=== PATIENT | female | born 1950 ===

== ENCOUNTER → 2018-02-09 | Outpatient (CLI) | payer OTHER ==
[~2018-02-09] MED LIST: FEXO-67 PO; FLU IM
[2018-02-09 13:11] LABS: LDL CHOLESTEROL 80 mg/dl
== END ==
LOC: LAB 11:34
PROVIDERS: ATTEND Family Medicine
DX: E78.5 Hyperlipidemia, unspecified (principal); I10 Essential (primary) hypertension; E11.65 Type 2 diabetes mellitus with hyperglycemia
CPT/HCPCS: 36415; 82040; 82043; 82247; 82310; 82374; 82435; 82465; 82565; 82947; 83036; 83718; 84075; 84132; 84155; 84295; 84450; 84460; 84478; 84520

== ENCOUNTER → 2018-04-24 | Outpatient (CLI) | payer MEDICARE, BC ==
--- NOTE | 2018-04-27 17:25 | RADIOLOGY IMAGING REPORT ---
[place] [facility] [place]: BESS EDOUARD : [id number] MR: [id number] V: [id number] EXAM DATE: ORDERING PHYSICIAN: ARELY PINA TECHNOLOGIST: Seda Gresham PROCEDURE:BILATERAL DIGITAL SCREENING MAMMOGRAM WITH CAD ASSISTED INTERPRETATION & 3D TOMOSYNTHESIS COMPARISON:Prior mammograms 02/12/17, 02/12/16, 01/30/15, 12/21/13, 10/13/12, 07/30/11. INDICATIONS:SCREENING FINDINGS: Small to moderate amount of fibroglandular tissue is seen throughout the breasts. The parenchymal pattern has remained stable allowing for difference in mammographic technique & patient positioning. There is no evidence of malignant appearing mass, malignant appearing calcifications or other secondary sign of malignancy in either breast. DIAGNOSTIC CATEGORY 1--NEGATIVE. RECOMMENDATIONS: ROUTINE MAMMOGRAM AND CLINICAL EVALUATION. IMPRESSION: BIRADS 1: Negative. No significant abnormality is seen. Dictated by: Stella Matos M.D. on 04/27/2018 at 15:27 Transcribed by: OLIVIA on 04/27/2018 at 15:41 Approved by: Stella Matos M.D. on 04/27/2018 at 17:24 [facility]
== END ==
LOC: MAMO 02:48
PROVIDERS: ATTEND Family Medicine
DX: Z12.31 Encounter for screening mammogram for malignant neoplasm of breast (principal)
CPT/HCPCS: 77063; 77067

== ENCOUNTER 2018-05-27 00:07 | Day surgery (SDC) | payer MEDICARE, BC, OTHER ==
[~2018-05-27] VITALS: Ht 162.6 cm; Wt 59.4 kg
[~2018-05-27 00:07] MED LIST changes: +ATOR20TA22 PO; +LISI20TA29 PO; +METF-411 PO
[2018-05-27] MEDS ORDERED: LIDOCAINE/SOD BICARB 8.4% SYR ID ONE (06:30)
[2018-05-27] MEDS ORDERED: NORMOSOL R SOLN(*) 1000 ML BAG 1,000 ML IV PRN (06:30)
[2018-05-27 07:12] VITALS: BP 147/94
[2018-05-27] MEDS ORDERED: PROPOFOL EMUL(*) 10MG/ML 20 ML 40 ML ONE (07:58)
[2018-05-27 08:42] VITALS: BP 104/42
--- NOTE | 2018-05-27 08:43 | Short(Outpt) Discharge Summary ---
Discharge Summary Reason for Hosp/Final Diag: (1) Colon cancer screening Status: Chronic Hospital Course & Plan: Colonoscopy completed without problems: normal. Departure Discharge to: Home, Self Care Discharge Instructions Home Meds Reported Medications Metformin Hcl (METFORMIN HCL) 500 Mg Tablet, 0.5 TAB PO QDAY, TAB 7 Atorvastatin Calcium (LIPITOR) 20 Mg Tablet, 1 TAB PO QDAY, TAB 04/28/18 Lisinopril (LISINOPRIL) 20 Mg Tablet, 20 MG PO QDAY, TAB 04/28/18 Diet: Regular Activity: As Tolerated Special Instructions: Your colonoscopy was completed without any problems and your prep was excellent (Good Job!!). I didn't find any polyps, cancers, or other abnormalities; it was completely normal. I recommend that you have another colonoscopy in 10 years. JENNIFER MOON MD May 27, 2018 08:43
[2018-05-27 09:00] VITALS: BP 123/82
[2018-05-27 09:09] VITALS: BP 121/85
[2018-05-27 09:11] VITALS: BP 134/84
== END 2018-05-27 09:22 | disposition home or self-care (01) ==
LOC: OR 00:07
PROVIDERS: ATTEND Surgery
DX: Z12.11 Encounter for screening for malignant neoplasm of colon (principal); E11.9 Type 2 diabetes mellitus without complications
CPT/HCPCS: 00812; 36416; 82948; G0121; J2704

== ENCOUNTER → 2018-08-14 | Outpatient (CLI) | payer MEDICARE, OTHER, BC ==
[~2018-08-14] MED LIST changes: -METF-411 PO; +METF-450 PO
[2018-08-14 11:08] LABS: LDL CHOLESTEROL 85 mg/dl
== END ==
LOC: LAB 10:15
PROVIDERS: ATTEND Family Medicine
DX: E78.5 Hyperlipidemia, unspecified (principal); E11.65 Type 2 diabetes mellitus with hyperglycemia; I10 Essential (primary) hypertension
CPT/HCPCS: 36415; 82040; 82043; 82247; 82310; 82374; 82435; 82465; 82565; 82947; 83036; 83718; 84075; 84132; 84155; 84295; 84450; 84460; 84478; 84520

== ENCOUNTER → 2019-02-18 | Outpatient (CLI) | payer MEDICARE, OTHER, BC ==
[2019-02-18 12:12] LABS: LDL CHOLESTEROL 87 mg/dl
== END ==
LOC: LAB 11:33
PROVIDERS: ATTEND Family Medicine
DX: E78.5 Hyperlipidemia, unspecified (principal); E11.65 Type 2 diabetes mellitus with hyperglycemia; I10 Essential (primary) hypertension
CPT/HCPCS: 36415; 82040; 82043; 82247; 82310; 82374; 82435; 82465; 82565; 82947; 83036; 83718; 84075; 84132; 84155; 84295; 84450; 84460; 84478; 84520